=== PATIENT | male | born 1965 | race Two or more races ===

== ENCOUNTER → 2018-08-22 | Outpatient (CLI) | payer BC ==
--- NOTE | 2018-08-22 11:53 | Diagnostic Imaging Report ---
Solid-phase gastric emptying study Reason for examination: Chronic abdominal pain The protocol used for this study is based on the Consensus Recommendations for Gastric Scintigraphy by the [place] [employer] and the Society of [employer]. Clinical information: The patient is not diabetic. The patient has not had previous gastrointestinal surgery. The patient is not on any medications expected to affect gastric motility. The patient has been fasting for at least 6 hours prior to this exam. Radiopharmaceutical: Tc-99m sulfur colloid 1.1 mCi Report: The radiopharmaceutical was added to 1/2 cup egg whites that were then prepared and served with 2 pieces of white bread toasted, 30 grams of jam and 4 ounces of water. The patient took the meal orally without difficulty. Images were obtained of the abdomen in the anterior and posterior projections at 10 minutes post the meal and at 1and 2 hours. Uptake was determined from the geometric mean of the anterior and posterior counts and the counts were corrected for decay of the radiolabel. The percent gastric retention of the labeled meal at: 1 hour was 20% (normal 30-90%) 2 hours was 7% (normal <60%) 3-hour and 4-hour measurements were not obtained because the gastric retention was less than 10% at 2 hours. Impression: The pattern of gastric emptying is rapid. Scan findings do not support the clinical diagnosis of gastroparesis. Signed by: Dr. Tiffani Sharma M.D. on 08/22/2018 11:50 AM
== END ==
LOC: NM 08:33
PROVIDERS: ATTEND Family Medicine
DX: R10.9 Unspecified abdominal pain (principal)
CPT/HCPCS: 78264; A9541

== ENCOUNTER → 2018-12-19 | Outpatient (CLI) | payer BC ==
--- NOTE | 2018-12-19 12:45 | Diagnostic Imaging Report ---
Thyroid ultrasound. History: Hypothyroidism Comparison: <None available>. Discussion: Transverse and longitudinal images of the thyroid were obtained demonstrating normal echogenicity of the thyroid. The sizes of the lobes are normal with the right thyroid lobe measuring 4.9 x 0.8 x 1.7 cm and the left measuring 4.9 x 1.0 x 1.2 cm. The isthmus is within normal limits measuring 0.2 cm. No nodules are present. No abnormal lymphadenopathy. IMPRESSION: Normal thyroid ultrasound. Signed by: Dr. Marcin Crawford DO on 12/19/2018 12:42 PM
--- NOTE | 2018-12-19 15:10 | Diagnostic Imaging Report ---
Hepatobiliary Scan with Gallbladder Ejection Fraction Clinical information: RUQ abdominal pain Report: Following intravenous administration of 6.6 millicuries of Tc-99m mebrofenin, dynamic images of the abdomen in the anterior projection were obtained through 40 minutes. Sincalide (CCK analog) 1.4 micrograms was administered intravenously over 30 minutes with additional imaging for determination of gallbladder ejection fraction. Perfusion to the liver is normal. Extraction of tracer from the blood pool by the liver parenchyma is normal. Tracer is seen promptly within the biliary tract. The gallbladder begins to fill by 35 minutes post-injection of tracer and fills adequately. Tracer is seen in the small bowel by 14 minutes. The gallbladder ejection fraction with administration of sincalide is 93% (normal greater than 40%). Impression: 1. Filling of the gallbladder excludes the diagnosis of acute cystic duct obstruction/acute cholecystitis. 2. Normal gallbladder ejection fraction of 93% does not support the clinical diagnosis of chronic cholecystitis/gallbladder dyskinesia. Signed by: Dr. Tiffani Sharma M.D. on 12/19/2018 3:07 PM
== END ==
LOC: NM 07:46
PROVIDERS: ATTEND Family Medicine
DX: E03.9 Hypothyroidism, unspecified (principal); K81.9 Cholecystitis, unspecified
CPT/HCPCS: 76536; 78227; A9537